=== PATIENT | female | born 1970 | race African-American/Black ===

== ENCOUNTER 2017-05-16 17:41 | Emergency (ER) | payer OTHER ==
[~2017-05-16] VITALS: Ht 170.2 cm; Wt 104.5 kg
[2017-05-16] MEDS ORDERED: FLEXERIL10 MG PO (20:03)
[2017-05-16 20:42] VITALS: BP 132/78
== END 2017-05-16 21:13 | disposition home or self-care (01) ==
LOC: EME 17:41
DX: S16.1XXA Strain of muscle, fascia and tendon at neck level, initial encounter (principal); M54.6 Pain in thoracic spine; V49.9XXA Car occupant (driver) (passenger) injured in unspecified traffic accident, initial encounter; Y92.410 Unspecified street and highway as the place of occurrence of the external cause; E78.5 Hyperlipidemia, unspecified; I10 Essential (primary) hypertension; F41.9 Anxiety disorder, unspecified
CPT/HCPCS: 71046; 99281; 99284; J1885